=== PATIENT | female | born 1985 | race Caucasian/White ===

== ENCOUNTER 2016-11-26 18:30 | Emergency (ER) | payer MEDICAID | END 2016-11-26 19:58 | disposition home or self-care (01) | LOC: D.ER 18:30 | DX: K04.7 Periapical abscess without sinus (principal); H66.92 Otitis media, unspecified, left ear; F17.200 Nicotine dependence, unspecified, uncomplicated ==

== ENCOUNTER 2017-01-28 08:39 | Emergency (ER) | payer MEDICAID ==
[2017-01-28 10:53] LABS: HCG URINE NEGATIVE (NEGATIVE)
[2017-01-28 10:59] LABS: APPEARANCE CLOUDY (CLEAR); COLOR STRAW (YELLOW)
[2017-01-28 11:00] LABS: BILIRUBIN NEGATIVE (NEGATIVE); GLUCOSE NEGATIVE (NEGATIVE); KETONE NEGATIVE (NEGATIVE); NITRITE NEGATIVE (NEGATIVE); PROTEIN NEGATIVE (NEGATIVE); UROBILINOGEN NORMAL (NORMAL)
[2017-01-28 11:01] LABS: BACTERIA MANY /hpf (NONE SEEN); EPITHELIAL CELLS 0-5 /hpf (0-5); RED CELLS - URINE 0-5 /hpf (0-5); WHITE CELLS - URINE 0-5 /hpf (0-5)
== END 2017-01-28 11:38 | disposition home or self-care (01) ==
LOC: D.ER 08:39
PROVIDERS: Nurse Practitioner Family
DX: N72 Inflammatory disease of cervix uteri (principal); F17.200 Nicotine dependence, unspecified, uncomplicated

== ENCOUNTER 2017-03-26 16:27 | Emergency (ER) | payer MEDICAID ==
[2017-03-26 17:20] LABS: BASOPHILS 0.1 % (0-2); EOSINOPHILS 1.3 % (0-7); HEMATOCRIT 43.7 % (36.0-48.0); HEMOGLOBIN 14.8 g/dL (12-16); IMMATURE GRANULOCYTES 0.3 % (0-5); LYMPHOCYTES 30.3 % (15-50); MCHC 33.9 g/dL (31.0-37.0); MCV 91.6 fL (80.0-100.0); MEAN PLATELET VOLUME 11.1 fL (7.4-10.4); PLATELET COUNT 215 10x3/uL (130-400); RBC 4.77 10x6/uL (4.00-5.40); WBC 8.7 10x3/uL (4.8-10.8)
[2017-03-26 17:39] LABS: HCG SERUM POSITIVE (NEGATIVE)
== END 2017-03-26 20:35 | disposition home or self-care (01) ==
LOC: D.ER 16:27
PROVIDERS: Family Medicine
DX: O20.9 Hemorrhage in early pregnancy, unspecified (principal); Z3A.01 Less than 8 weeks gestation of pregnancy

== ENCOUNTER 2017-04-24 13:50 | Emergency (ER) | payer MEDICAID | END 2017-04-24 18:32 | disposition home or self-care (01) | LOC: D.ER 13:50 | DX: O26.891 Other specified pregnancy related conditions, first trimester (principal); Z3A.12 12 weeks gestation of pregnancy; M25.511 Pain in right shoulder; S43.401A Unspecified sprain of right shoulder joint, initial encounter; W01.0XXA Fall on same level from slipping, tripping and stumbling without subsequent striking against object, initial encounter; Y93.89 Activity, other specified; Y92.019 Unspecified place in single-family (private) house as the place of occurrence of the external cause ==